=== PATIENT | female | born 1955 ===

== ENCOUNTER 2017-11-16 09:07 | Day surgery (SDC) | payer MEDICARE ==
[2017-11-02 09:29] VITALS: BMI 45.2
[~2017-11-16 09:07] MED LIST: Carbachol 0.01% IO ONE; Chondroitin/Hyaluronate Opth Syringe KIT (0.55 ml-0.5 ml) IO ONE; Hyaluronidase Human, Recombi 150 U/ML VIAL ONE; Lidocaine 2% MPF (5 ml) Inj ONE; Povidone Iodine Ophthalmic 5% Soln ONE; Tetracaine 0.5% Ophth (OR ONLY) ONE; Tobramycin/Dexamethasone OPHT OINT ONE
[2017-11-16] MEDS ORDERED: Ciprofloxacin 0.3% OPTH SOLN OS SCH (09:45)
[2017-11-16] MEDS ORDERED: Flurbiprofen 0.03% Opht SOLN OS SCH (09:45)
[2017-11-16] MEDS ORDERED: Phenylephrine 2.5% Opht Soln OS SCH (09:45)
[2017-11-16] MEDS ORDERED: Tropicamide 1% Opht SOLUTION OS SCH (09:45)
[2017-11-16] MEDS ORDERED: Midazolam 2 MG/2 ML VIAL ONE (11:07)
[2017-11-16] MEDS ORDERED: acetaZOLAMIDE 500 mg SR Cap PO ONE (13:20)
[2017-11-16 13:49] VITALS: BP 135/52; PULSE 75; RESP 18; TEMP 97.9; O2SAT 99
--- NOTE | 2017-11-16 16:04 | OP ---
PROCEDURE DATE: 11/16/2017 PREOPERATIVE DIAGNOSIS: Matured cataract, left eye. POSTOPERATIVE DIAGNOSIS: Matured cataract, left eye. OPERATIVE PROCEDURE: Phacoemulsification, left eye, insertion of posterior chamber implant. SURGEON: Pawan Miguel M.D. CO-SURGEON: Ayden Jett MD ANESTHESIA TYPE: Local IV sedation. DESCRIPTION OF PROCEDURE: The patient was brought into the operating room, placed in supine position, prepped and draped in the usual fashion for ophthalmic surgery. Lid speculum was inserted, lids and exposing globe. A side-port incision was made superiorly and inferiorly with a disposable sharp blade. Anterior chamber was filled with Viscoat. A near clear corneal incision was made temporally with a 2.75-mm keratome. Capsulorrhexis was then performed with Utrata forceps. Hydrodissection carried out with balanced salt solution. Nucleus was phacoemulsified. Remaining cortical fragments were removed with a split irrigation and aspiration system. The capsular sac was filled with Provisc. A posterior chamber lens was then injected into the capsular sac and rotated into horizontal position. Provisc was aspirated out of the anterior chamber. The pupil was constricted with Miochol. The wound was found to be watertight. Topical Betadine, Timoptic, and TobraDex ointment and pressure patch were applied. The patient tolerated the procedure well. Pawan Miguel MD
== END 2017-11-16 13:42 | disposition home or self-care (01) ==
LOC: C.SDS 09:07
PROVIDERS: ATTEND Ophthalmology
DX: H25.12 Age-related nuclear cataract, left eye (principal)
CPT/HCPCS: 66984; 82948; J2250; J3010; J3470; V2632